=== PATIENT | male | born 1985 | race Caucasian/White ===

== ENCOUNTER 2018-10-02 08:46 | Emergency (ER) | payer SELFPAY ==
[~2018-10-02] VITALS: Ht 175.3 cm; Wt 99.8 kg
[2018-10-02 09:00] VITALS: BP 143/78
[2018-10-02] MEDS ORDERED: LIDOCAINE 2% 20 ML VIAL. IJ ONE (09:15)
--- NOTE | 2018-10-02 09:18 | PHYS DOC ---
Past Medical History Smoking: Cigarettes, 1 Pack Per Day Adult General Chief Complaint Chief Complaint: LACERATION/AVULSION HPI HPI Patient is a 33 year old male who presents with a laceration to the left hand happened approximately 45 minutes prior to arrival. The patient states that he was reaching into tool bag and he was cut by a razor knife. Rates his pain as 3 out of 10 and states that sharp and throbbing. Has not taken any medication prior to arrival. Review of Systems Review of Systems Constitutional: Denies fever or chills [] Eyes: Denies change in visual acuity, redness, or eye pain [] HENT: Denies nasal congestion or sore throat [] Respiratory: Denies cough or shortness of breath [] Cardiovascular: No additional information not addressed in HPI [] GI: Denies abdominal pain, nausea, vomiting, bloody stools or diarrhea [] : Denies dysuria or hematuria [] Musculoskeletal: Denies back pain or joint pain [] Integument: Denies rash or skin lesions. Reports laceration. Neurologic: Denies headache, focal weakness or sensory changes [] Endocrine: Denies polyuria or polydipsia [] Complete systems were reviewed and found to be within normal limits, except as documented in this note. Current Medications Current Medications Current Medications Medications (Trade) Dose Ordered Sig/Milli Start Time Stop Time Status Last Admin Dose Admin Diphtheria/ Tetanus/Acell Pertussis (Boostrix) 0.5 ml STK-MED ONCE 10/02/18 09:20 10/02/18 09:21 DC Lidocaine HCl 20 ml 1X ONCE 10/02/18 09:15 10/02/18 09:16 DC 10/02/18 09:23 20 ML Allergies Allergies Allergies Coded Allergies Type Severity Reaction Last Updated Verified acetaminophen Allergy Intermediate 10/02/18 Yes fluoxetine Allergy Intermediate dystonic reaction 10/02/18 Yes Physical Exam Physical Exam Constitutional: Well developed, well nourished, no acute distress, non-toxic appearance. [] HENT: Normocephalic, atraumatic, bilateral external ears normal, oropharynx moist, no oral exudates, nose normal. [] Eyes: PERRLA, EOMI, conjunctiva normal, no discharge. [] Neck: Normal range of motion, no tenderness, supple, no stridor. [] Cardiovascular:Heart rate regular rhythm, no murmur [] Lungs & Thorax: Bilateral breath sounds clear to auscultation [] Abdomen: Bowel sounds normal, soft, no tenderness, no masses, no pulsatile masses. [] Skin: Warm, dry, has laceration to anterior left hand that is 2.0 cm in length. Back: No tenderness, no CVA tenderness. [] Extremities: No tenderness, no cyanosis, no clubbing, ROM intact, no edema. [] Neurologic: Alert and oriented X 3, normal motor function, normal sensory function, no focal deficits noted. [] Psychologic: Affect normal, judgement normal, mood normal. [] Current Patient Data Vital Signs Vital Signs Date Time Temp Pulse Resp B/P (MAP) Pulse Ox O2 Delivery O2 Flow Rate FiO2 10/02/18 09:00 98.4 77 16 143/78 (99) 98 Room Air 98.4 EKG EKG [] Radiology/Procedures Radiology/Procedures Indication: Laceration Procedure: The patient was placed in the appropriate position and anesthesia around the [2% lidocaine). The area was then cleansed with iodine and 60 mL of copious saline. The laceration was closed with 5 3-0 Ethilon sutures. The wound area was then dressed with dressing and neosporin. Total repaired wound length: 2 cm The patient tolerated the procedure well. Complications: None. Course & Med Decision Making Course & Med Decision Making Pertinent Labs and Imaging studies reviewed. (See chart for details) Has laceration. Will repair with sutures. Patient is agreeable. Laceration was repaired, discussed with patient how to avoid infection, placing Neosporin on wound, and keeping clean. Discussed that if symptoms of infection start to come back to ER. Dragon Disclaimer Dragon Disclaimer This electronic medical record was generated, in whole or in part, using a voice recognition dictation system. Departure Departure Impression: Primary Impression: Laceration Disposition: 01 HOME, SELF-CARE Condition: STABLE Referrals: FRANCES JAMES (PCP) Patient Instructions: Laceration Care, Adult Additional Instructions: Thank you for visiting [facility]. We appreciate you trusting us with your care. If any additional problems come up don't hesitate to return to visit us. Please follow up with your primary care provider so they can plan additional care if needed and know about the problem that you had. If symptoms worsen come back to the Emergency Department. Any concerning symptoms that start such as chest pain, shortness of air, weakness or numbness on one side of the body, running high fevers or any other concerning symptoms return to the ER. Please have sutures taken out in 7 days. Return to ER or to your primary care provider if you see any signs of infection such as increased redness, pain, or discharge from the wound. SALENA MOBLEY APRN Oct 02, 2018 09:18
[2018-10-02] MEDS ORDERED: DIPHTH,PERTUSS(ACELL),TET TOX 0.5 ML DISP.SYRIN. VAX IM ONE ×2 (09:20→09:30)
[2018-10-02] MEDS ORDERED: NEOMY/BACITR/POLYMYXIN OINT PACKET. TP ONE (10:30)
== END 2018-10-02 10:13 | disposition home or self-care (01) ==
LOC: ER 08:46
DX: S61.412A Laceration without foreign body of left hand, initial encounter (principal); F17.210 Nicotine dependence, cigarettes, uncomplicated; Z88.6 Allergy status to analgesic agent; Z88.8 Allergy status to other drugs, medicaments and biological substances; W26.0XXA Contact with knife, initial encounter; Y93.89 Activity, other specified; Y92.89 Other specified places as the place of occurrence of the external cause; Y99.8 Other external cause status
CPT/HCPCS: 12001; 90471; 90715; 99283; J2001; 99284